=== PATIENT | male | born 1960 | race Caucasian/White ===

== ENCOUNTER 2020-04-11 23:11 | Emergency (ER) | payer MEDICAID ==
[~2020-04-11] VITALS: Ht 170.2 cm; Wt 86.2 kg
--- NOTE | 2020-04-11 23:11 | NUR ---
ZULEMA ZENDEJAS, PREBOOK. TAKEN TO CHAIR A
--- NOTE | 2020-04-11 23:12 | NUR ---
59M BROUGHT IN BY [facility] FOR PRE-BOOK FOR C/O HIGH BLOOD PRESSURE. PT WAS FOUND AT A BUS STOP BY PD FOR METH USE AND DRUG INTOXICATION. UPON VITALS CHECK, BP 144/106 AND PT STATES THEY HAVE NOT TAKEN THEIR BP MEDS TODAY. DENIES SOB/COUGH. DENIES HEADACHED OR BLURRED VISION. DENIES N/V/D. RESPIRATIONS EVEN AND UNLABORED. PMHX: COPD, HTN, TORN ACL, BIPOLAR RX: UNOBTN ALLX: UNOBTN
--- NOTE | 2020-04-11 23:15 | NUR ---
Dr. Dover examining patient.
[2020-04-11 23:19] VITALS: BP 144/106
--- NOTE | 2020-04-11 23:19 | NUR ---
BP 144/106. NAMAN GRIDER MADE AWARE
[2020-04-11] MEDS ORDERED: cloNIDine 0.1 MG TAB PO ONE (23:20)
--- NOTE | 2020-04-11 23:22 | NUR ---
PT REFUSED CLONIDINE. ERMD MADE AWARE.
--- NOTE | 2020-04-11 23:28 | NUR ---
AMA FORM SIGNED BY PTMikael
[2020-04-11 23:30] VITALS: BP 144/106
--- NOTE | 2020-04-11 23:33 | NUR ---
PT DISCHARGED BACK TO [facility] OFFICER MACKENZIE CUSTODY. BADGE # 394. WRISTBAND REMOVED. AFTERCARE INSTRUCTIONS EDUCATED TO PT.
== END 2020-04-11 23:33 | disposition left against medical advice (07) ==
LOC: MED 23:11
DX: I10 Essential (primary) hypertension (principal); J44.9 Chronic obstructive pulmonary disease, unspecified; F15.90 Other stimulant use, unspecified, uncomplicated; Z02.89 Encounter for other administrative examinations
CPT/HCPCS: 99283